=== PATIENT | female | born 1930 | race Caucasian/White ===

== ENCOUNTER 2017-03-14 10:20 | Emergency (ER) | payer OTHER ==
[~2017-03-14] VITALS: Ht 149.9 cm; Wt 52.1 kg
[~2017-03-14 10:20] MED LIST: ALEVE220 MG PO; CATAPRES-TTS 31 EACH TD; CLONIDINE1 EAC1 TD; CYMBALTA60 MG PO; DIOVAN80 MG PO; GLIPIZIDE10 MG PO; GLIPIZIDE5 MG PO; HALDOL2 MG PO; KEFLEX500 MG PO; LORAZEPAM0.5 MG PO; LOSARTAN POTAS100 MG PO; MIRALAX17 GM PO; MORPHINE SULFA1 DOSE SC; PRAVASTATIN SOD20 MG PO; PROMETHAZINE HC25 M1 PO; ULTRAM50 MG PO
[2017-03-14 11:38] LABS: ADD MIUA? YES; BILIRUBIN NEGATIVE; BLOOD NEGATIVE; GLUCOSE (STRIP) >=500; KETONES NEGATIVE; LEUKOCYTES MODERATE; NITRITE NEGATIVE; PROTEIN (STRIP) 30; SPECIFIC GRAVITY 1.023 (1.000-1.030)
[2017-03-14 11:40] LABS: COLOR YELLOW ((YELLOW))
[2017-03-14 11:58] LABS: AMORPHOUS URATES CRYSTALS 2+; BACTERIA 2+ /HPF; CASTS NONE SEEN /LPF; CRYSTALS PRESENT; EPITHELIAL CELLS RARE /HPF; MUCUS NONE SEEN /LPF; RED BLOOD CELLS NONE SEEN /HPF (0-5); UCUL ADDED? YES; WHITE BLOOD CELLS 30-40 /HPF (0-5)
[2017-03-14] MEDS ORDERED: KEFLEX500 MG PO (13:11)
[2017-03-14 13:54] VITALS: BP 170/93
== END 2017-03-14 14:02 | disposition home or self-care (01) ==
LOC: EME → EDBD 10:20 → EME 10:20
PROVIDERS: Emergency Medicine
PROC: 0HQ1XZZ Repair Face Skin, External Approach (ICD-10-PCS; principal; 2017-03-14)
DX: S01.81XA Laceration without foreign body of other part of head, initial encounter (principal); N39.0 Urinary tract infection, site not specified; W18.30XA Fall on same level, unspecified, initial encounter; Y92.009 Unspecified place in unspecified non-institutional (private) residence as the place of occurrence of the external cause; F03.90 Unspecified dementia, unspecified severity, without behavioral disturbance, psychotic disturbance, mood disturbance, and anxiety; E11.9 Type 2 diabetes mellitus without complications; M79.7 Fibromyalgia; E78.5 Hyperlipidemia, unspecified; I10 Essential (primary) hypertension
CPT/HCPCS: 70450; 70486; 81003; 87077; 87086; 87186; 99281; 99284

== ENCOUNTER 2017-09-05 18:41 | Inpatient (IN) | payer OTHER ==
[~2017-09-05] VITALS: Ht 154.9 cm; Wt 51.2 kg
[2017-09-05 19:38] LABS: HEMATOCRIT 41.4 % (36.0-46.0); MCHC 32.1 G/DL (30.0-36.0); MCV 99.8 FL (83-99); PLATELET COUNT 120 K/uL (156-360); RBC DIS.WIDTH-CV 13.2 % (11.8-14.6); RBC DIS.WIDTH-SD 48.9 % (39-53); RED BLOOD COUNT 4.15 M/uL (3.80-5.20)
[2017-09-05 19:45] LABS: CHLORIDE 114 mEq/L (99-109); POTASSIUM 4.1 mEq/L (3.7-5.4); SODIUM 156 mEq/L (136-147)
[2017-09-05 19:46] LABS: MAGNESIUM 2.1 mg/dL (1.3-2.7)
[2017-09-05 19:47] LABS: GLUCOSE 182 mg/dL (70-99)
[2017-09-05 19:49] LABS: ANION GAP 13 MEQ/L (2-14); TOTAL BILIRUBIN 0.9 mg/dL (0.0-1.0)
[2017-09-05 19:51] LABS: ALKALINE PHOSPHATASE 113 IU/L (3-129); GFR ESTIMATE (CALCULATED) 16 mL/min/
[2017-09-05 19:52] LABS: UREA NITROGEN (BUN) 48 mg/dL (9-23)
[2017-09-05 20:23] LABS: ABS NEUTROPHIL COUNT 21.8; ANISOCYTOSIS 1+; BAND NEUTROPHILS 22.7 % (0-8.0); EOSINOPHIL ABS CT 0; LYMPHOCYTES 8.3 % (15.0-45.0); MACROCYTES 1+; METAMYELOCYTES 0.9 %; MICROCYTOSIS 1+; SEG.NEUTROPHILS 64.6 % (46.0-76.0)
[2017-09-05 21:06] LABS: ADD MIUA? YES; BILIRUBIN NEGATIVE; BLOOD SMALL; COLOR AMBER ((YELLOW)); GLUCOSE (STRIP) NEGATIVE; KETONES NEGATIVE; LEUKOCYTES LARGE; NITRITE NEGATIVE; PROTEIN (STRIP) 100; SPECIFIC GRAVITY 1.011 (1.000-1.030)
[2017-09-05 21:20] LABS: BACTERIA 2+ /HPF; CASTS PRESENT /LPF; CRYSTALS PRESENT; EPITHELIAL CELLS RARE /HPF; MUCUS NONE SEEN /LPF; UCUL ADDED? YES; WHITE BLOOD CELLS TNTC /HPF (0-5)
[2017-09-05 21:21] LABS: CALCIUM OXALATE CRYSTALS RARE /HPF; COARSE GRANULAR CASTS RARE /LPF; FINE GRANULAR CASTS 0-5 /LPF; HYALINE CASTS 0-5 /LPF
[2017-09-06 01:00] VITALS: BP 181/87
[2017-09-06 04:18] VITALS: BP 167/80
[2017-09-06 07:04] VITALS: BP 150/73
[2017-09-06 12:45] LABS: POINT-OF-CARE METER ID UU14188625
[2017-09-06 15:14] VITALS: BP 152/88
[2017-09-06 16:30] LABS: POINT-OF-CARE METER ID UU14174225
[2017-09-06 21:11] LABS: POINT-OF-CARE METER ID UU14188625
[2017-09-07] MEDS ORDERED: DEPAKOTE125 MG PO (05:47)
[2017-09-07] MEDS ORDERED: SEROQUEL12.5 MG PO (05:47)
[2017-09-07] MEDS ORDERED: DEPAKOTE250 MG PO (05:48)
[2017-09-07] MEDS ORDERED: MELATIN3 MG PO (05:49)
[2017-09-07] MEDS ORDERED: ATIVAN0.5 MG PO (05:50)
[2017-09-07 07:03] LABS: HDL CHOLESTEROL 18 MG/DL (Desirable>=50); LDL CHOLESTEROL 84 mg/dL (Desirable<100); NON-HDL CHOLESTEROL 119 mg/dL (Desirable<160); TOTAL CHOLESTEROL 137 mg/dL (Desirable<200); TRIGLYCERIDES 174 MG/DL (Normal: <150)
[2017-09-07 07:16] VITALS: BP 180/88
[2017-09-07 07:18] LABS: POINT-OF-CARE METER ID UU14174225
[2017-09-07 11:16] LABS: POINT-OF-CARE METER ID UU14188625
[2017-09-07 15:06] VITALS: BP 144/77
[2017-09-07 16:34] LABS: POINT-OF-CARE METER ID UU13113717
[2017-09-07 21:14] LABS: POINT-OF-CARE METER ID UU14174225
[2017-09-08 00:01] VITALS: BP 173/84
[2017-09-08 06:51] LABS: HEMATOCRIT 42.4 % (36.0-46.0); MCH 32.4 PG (29.0-34.0); MCHC 33.3 G/DL (30.0-36.0); MCV 97.5 FL (83-99); MEAN PLAT.VOLUME 12.6 uM^3 (9.5-12.4); PLATELET COUNT 126 K/uL (156-360); RBC DIS.WIDTH-CV 13.1 % (11.8-14.6); RBC DIS.WIDTH-SD 46.9 % (39-53); RED BLOOD COUNT 4.35 M/uL (3.80-5.20); WHITE BLOOD COUNT 9.6 K/uL (4.1-10.2)
[2017-09-08 07:24] LABS: ALKALINE PHOSPHATASE 96 IU/L (3-129); ANION GAP 13 MEQ/L (2-14); CHLORIDE 119 MEQ/L (99-109); GFR ESTIMATE (CALCULATED) 45 mL/min/; GLUCOSE 123 mg/dL (70-99); POTASSIUM 3.6 MEQ/L (3.7-5.4); SAMPLE HEMOLYSIS CHECK 0; SAMPLE ICTERIC CHECK 0; SAMPLE LIPEMIA CHECK 0; SODIUM 159 MEQ/L (136-147); TOTAL BILIRUBIN 0.7 MG/DL (0.0-1.0); UREA NITROGEN (BUN) 46 mg/dL (9-23)
[2017-09-08 07:47] VITALS: BP 179/92
[2017-09-08 08:11] LABS: Estimated Average Glucose 148 mg/dL (70-123); HEMOGLOBIN A1c (GLYCOHEMOGLOB) 6.8 % HGB (Below 5.7)
[2017-09-08 08:13] LABS: POINT-OF-CARE METER ID UU14174225
[2017-09-08 12:20] LABS: POINT-OF-CARE METER ID UU13113717
[2017-09-08 16:22] VITALS: BP 180/84
[2017-09-08 17:09] LABS: POINT-OF-CARE METER ID UU14174225
[2017-09-08 21:29] LABS: POINT-OF-CARE METER ID UU14188625
[2017-09-08 23:42] VITALS: BP 180/76
[2017-09-10] MEDS ORDERED: LORAZEPAM0.5 MG PO (12:25)
[2017-09-10] MEDS ORDERED: ANASPAZ0.125 MG PO (12:27)
[2017-09-10] MEDS ORDERED: MORPHINE CON20 MG/M1 PO (12:29)
== END 2017-09-10 15:18 | disposition hospice, home (50) | DRG 65 ==
LOC: EME 18:41 → EDOF 22:46 → 5SOUTH 22:46 → ENRESERV 22:47 → 5SOUTH 09-06 00:21 → ENPENDDIS 09-10 → 5SOUTH 09-10 15:18
PROVIDERS: Emergency Medicine; Hospitalist; Internal Medicine
DX: I63.531 Cerebral infarction due to unspecified occlusion or stenosis of right posterior cerebral artery (principal); N39.0 Urinary tract infection, site not specified; B96.20 Unspecified Escherichia coli [E. coli] as the cause of diseases classified elsewhere; N17.9 Acute kidney failure, unspecified; E86.0 Dehydration; E11.9 Type 2 diabetes mellitus without complications; G30.9 Alzheimer's disease, unspecified; F02.80 Dementia in other diseases classified elsewhere, unspecified severity, without behavioral disturbance, psychotic disturbance, mood disturbance, and anxiety; M48.061 Spinal stenosis, lumbar region without neurogenic claudication; I10 Essential (primary) hypertension; M79.7 Fibromyalgia; E78.5 Hyperlipidemia, unspecified; R41.82 Altered mental status, unspecified; Z51.5 Encounter for palliative care; Z85.3 Personal history of malignant neoplasm of breast; Z96.643 Presence of artificial hip joint, bilateral; Z74.01 Bed confinement status
CPT/HCPCS: 70450; 71010; 80053; 80061; 81003; 82948; 83036; 83735; 85025; 85027; 87077; 87086; 87186; 92610 GN; 99281; 99285; J0696; J1644; J1815; J7040; J7050